=== PATIENT | male | born 1960 | race Caucasian/White ===

== ENCOUNTER 2020-03-24 05:52 | Inpatient (IN) ==
--- NOTE | 2020-03-01 11:37 | PAT Medication Instructions ---
Medication Instructions Date of Service March 01, 2020 Home Medications Ibuprofen (Motrin) 600 mg PO BID levothyroxine 150 mcg PO QAM turmeric (bulk) [Curcumin] 2 ea MISCELLANEOUS QAM ASK your surgeon for instructions Ibuprofen (Motrin) 600 mg PO BID STOP taking 2 weeks before surgery (or as soon as possible if surgery is within 2 weeks) turmeric (bulk) [Curcumin] 2 ea MISCELLANEOUS QAM Take morning of surgery With a small sip of water, OTHERWISE NOTHING TO EAT OR DRINK AFTER MIDNIGHT: levothyroxine 150 mcg PO QAM Other Notes If you have any questions please call us at [phone] or [phone] or [phone] or [phone]
--- NOTE | 2020-03-01 11:42 | Anesthesiology Consultation ---
Date of Service March 01, 2020 Assessment & Plan (1) Encounter for pre-operative examination: Per assessment on 03/01: Travel screen- negative. No known COVID-19 positive con tacts or current COVID-19 related symptoms. Surgeon arranging preop COVID testing (scheduled 03/05; [facility]). Awaiting results. Chart Review Chart Review: Acceptable Risk for Surgery and Patient seen in Pre Admission Testing Teaching & Discussion Pre-Anesthesia Teaching/Discussion Notes: Instructed NPO after midnight before surgery,except medications with 15 cc of water. Medication instructions provided according to the PAT guidelines. History Surgery Operation Date: 03/12/20 12:25 Proposed Procedures p C4-C7 Anterior Cervical Discectomy Fusion, Spinal Cord Monitoring - Govind Win, Height/Weight Height: 6 ft Weight: 94 kg Allergies Allergy/AdvReac Type Severity Reaction Status Date / Time cephalexin Allergy rash Unverified 03/01/20 14:42 Sulfa (Sulfonamide Allergy rash Unverified 03/01/20 14:42 Antibiotics) Cipro AdvReac "YEAST Unverified 07/15/09 12:43 INFECTION ciprofloxacin AdvReac yeast Unverified 03/01/20 14:42 infection Medications Home Medications Medication Instructions Recorded Confirmed Last Taken Ibuprofen (Motrin) 600 mg PO BID #0 07/15/09 03/01/20 Unknown levothyroxine 150 mcg PO QAM 03/01/20 03/01/20 Unknown turmeric (bulk) [Curcumin] 2 ea MISCELLANEOUS QAM 03/01/20 03/01/20 Unknown Past Medical History Medical History History of colitis Hypothyroid Osteoarthritis Seasonal allergies Exercise / Class Metabolic Activity II 4-5 Yardwork/Stairs/Walk up hill Past Surgical History Surgical History History of carpal tunnel release with cyst removal History of ear surgery History of nasal surgery History of removal of cyst back, ear, wrist Past Anesthesia History No Hx of Anesthesia Complications (except PONV x1 episode) and No Family Hx of Anesthesia Complications History of PONV No Hx of Motion Sickness and History of PONV (x1 episode) Social History Smoking Status: Current every day smoker tobacco type: cigarettes Smoking cigarettes per day: 1/2 PPD x 4 years Do You Dip or Chew Tobacco: No Hx Alcohol Use: Yes Alcohol type: beer Alcohol Intake Frequency Comment: 1-2 times/year Hx Substance Use: No substance use type: does not use Review of Systems Patient denies chest pain, shortness of breath, dyspnea on exertion, fever, chills, cough, wheezing, palpitations. Physical Exam Vital Signs VITALS BP 134/75 P 87 TEMP 98.2 SP02 97%RA RESP 16 PHYSICAL Mildly decreased cervical extension 2/2 cervicalgia Full TMJ range of motion. TMD 3 finger breaths Mallampati Score 2 Dentition: upper partial Lungs: clear throughout to auscultation Cardiac: regular rate and rhythm, no murmurs noted Spine: normal Carotid arteries: negative bruit Extremities: no edema Trimmed talbert Testing Laboratory Results 03/01/20 12:05 03/01/20 12:05 PT 10.6 Seconds (9.0-12.0) 03/01/20 12:05 INR 1.0 (0.9-1.1) 03/01/20 12:05 APTT 28.2 Seconds (21.0-31.0) 03/01/20 12:05 Urine Color Yellow 03/01/20 12:05 Urine Appearance Clear (Clear) 03/01/20 12:05 Urine pH 5.5 (4.5-7.5) 03/01/20 12:05 Ur Specific Bim 1.025 (1.000-1.030) 03/01/20 12:05 Urine Protein Negative (Negative) 03/01/20 12:05 Urine Glucose (UA) Negative (Negative) 03/01/20 12:05 Urine Ketones Trace (Negative) H 03/01/20 12:05 Urine Nitrite Negative (Negative) 03/01/20 12:05 Ur Leukocyte Esterase Negative (Negative) 03/01/20 12:05 Blood Type O Positive 03/01/20 12:05 Antibody Screen NEGATIVE 03/01/20 12:05 Electrocardiogram Date: 03/01/20 Findings: + NSR @ (80) Chest X-Ray Date: 03/01/20 FINDINGS: The heart is the upper limits of normal in size. There is no failure. There is no lobar consolidation. There are bilateral rounded opacities at the lung bases likely representing nipple shadows. There is no failure. IMPRESSION: No active disease in the chest.
[2020-03-01 12:23] LABS: Appearance Urine Clear (Clear); Basophils # (auto) 0.02 K/uL (0-0.2); Basophils % (auto) 0.3 %; Bilirubin Urine Negative (Negative); Blood Urine Negative (Negative); Color Urine Yellow; Eosinophils # (auto) 0.39 K/uL (0-0.5); Eosinophils % (auto) 5.8 %; Glucose Urine UA Negative (Negative); Hematocrit (blood only) 45.9 % (42-52); Hemoglobin 15.9 g/dL (14.0-18.0); Immature Granulocytes # (auto) 0.01 K/uL (0.00-0.02); Immature Granulocytes % (auto) 0.1 %; Ketones Urine Trace (Negative); Leukocyte Esterase Urine Negative (Negative); Lymphocytes # (auto) 2.14 K/uL (1.2-3.4); Mean Corpuscular Hemoglobin 32.1 pg (25-34); Mean Corpuscular Hgb Conc 34.6 g/dL (32-36); Mean Corpuscular Volume 92.7 fL (80-100); Mean Platelet Volume 9.6 fL (7.4-10.4); Monocytes # (auto) 0.73 K/uL (0.11-0.59); Monocytes % (auto) 10.9 %; Neutrophils # (auto) 3.39 K/uL (1.4-6.5); Neutrophils % (auto) 50.9 %; Nitrite Urine Negative (Negative); Platelet Count 227 K/uL (130-400); Protein Urine Negative (Negative); RDW Coefficient of Variation 13.1 % (11.5-14.5); RDW Standard Deviation 44.3 fL (36.4-46.3); Red Blood Count 4.95 M/uL (4.7-6.1); Specific Gravity Urine 1.025 (1.000-1.030); Urobilinogen Urine Negative (Negative); White Blood Count 6.68 K/uL (4.8-10.8); pH Urine 5.5 (4.5-7.5)
--- NOTE | 2020-03-01 12:31 | XRay Report ---
XR chest Pre-admission PA/Lat CLINICAL HISTORY: Preoperative chest COMPARISON STUDY: No previous studies for comparison. FINDINGS: The heart is the upper limits of normal in size. There is no failure. There is no lobar con solidation. There are bilateral rounded opacities at the lung bases likely representing nipple shadow s. There is no failure.[ IMPRESSION: No active disease in the chest. ACT 112: Negative or not required by law. Electronically signed by: Ervin Payton M.D. 03/01/2020 12:29 PM
[2020-03-01 12:35] LABS: Partial Thromboplastin Time 28.2 Seconds (21.0-31.0); Prothrombin Time 10.6 Seconds (9.0-12.0)
[2020-03-01 14:37] LABS: BUN Creatinine Ratio 28.4 (10-20); Calcium 8.7 mg/dl (8.5-10.1); Creatinine Clr Calc Pharmacy 108.9 ml/min; Est GFR (African American) 109.7; Est GFR (Non-African American) 94.7; Potassium 3.8 mmol/L (3.5-5.1)
--- NOTE | 2020-03-01 16:28 | Electrocardiogram Report ---
Test Reason : Blood Pressure : / mmHG Vent. Rate : 080 BPM Atrial Rate : 080 BPM P-R Int : 198 ms QRS Dur : 090 ms QT Int : 366 ms P-R-T Axes : 086 056 073 degrees QTc Int : 422 ms Normal sinus rhythm Normal ECG No previous ECGs available Confirmed by Eddi Bartholomew ([id number]) on 03/01/2020 4:28:10 PM Referred By: Govind Win Confirmed By:Clinton Bartholomew
[~2020-03-24 05:52] MED LIST: *ANCEF*ALLERGY NOTED TO ORDERED MEDICATION SCH; ACETAMINOPHEN 500 MG TAB PO SCH; GABAPENTIN 600 MG DOSE PO SCH; LR 15ML/HR IV SCH
--- OUTSIDE RECORDS SUMMARY | 2020-03-24 05:55 | External Medical Summary | Continuity of Care Document ---
:1960 Author Name Daisy Walker Address Unavailable Unavailable , Care Team Providers Name Role Phone Gabo Walker Unavailable [email or web address] Active medical history not documented Allergies and Adverse Reactions Allergy history not documented Medications Medications not documented Procedures Procedures not documented Immunizations Immunizations not documented Plan of Treatment Planned Observations Planned Goals not documented Results No Known Results Results not documented
[2020-03-24] MEDS ORDERED: CLINDAMYCIN 600 MG/54 ML BAG IV SCH (06:00)
[2020-03-24] MEDS ORDERED: CeleBREX 200 MG CAP PO SCH (06:00)
[2020-03-24] MEDS ORDERED: ACETAMINOPHEN 500 MG TAB PO SCH (06:00)
[2020-03-24] MEDS ORDERED: GABAPENTIN 600 MG DOSE PO SCH (06:00)
[2020-03-24] MEDS ORDERED: LR 15ML/HR IV SCH (06:00)
[2020-03-24] MEDS ORDERED: LIDOCAINE HCL 2% 2 ML VIAL/AMP(20MG/ML) INFIL ONE (06:51)
[2020-03-24] MEDS ORDERED: GLYCOPYRROLATE 0.2 MG/ML VIAL ONE (06:51)
[2020-03-24] MEDS ORDERED: PROPOFOL IV EMULSION 10 MG/ML 20 ML VIAL IV ONE (06:51)
[2020-03-24] MEDS ORDERED: fentaNYL citrate 100 MCG/2 ML VIAL ONE ×2 (06:51→08:22)
[2020-03-24] MEDS ORDERED: MIDAZOLAM HCL 1 MG/ML 2ML VIAL ONE (06:51)
[2020-03-24] MEDS ORDERED: NEOSTIGMINE METHYLSULFATE 1 MG/ML 10ML VIAL ONE (06:51)
[2020-03-24] MEDS ORDERED: ROCURONIUM BROMIDE 10 MG/ML 5 ML VIAL IV ONE ×3 (06:51→08:25)
[2020-03-24] MEDS ORDERED: BACITRACIN INJ 50,000 UNIT VIAL ONE (07:15)
[2020-03-24] MEDS ORDERED: METOCLOPRAMIDE HCL INJ 5 MG/ML 2 ML VIAL IV PRN ×2 (07:31→11:54)
[2020-03-24] MEDS ORDERED: PROMETHAZINE HCL 12.5 MG in SODIUM CHLORIDE 0.9% 50 ML IV PRN ×2 (07:31→11:54)
[2020-03-24] MEDS ORDERED: ONDANSETRON INJ 2 MG/ML 2 ML VIAL IV PRN ×2 (07:31→11:54)
[2020-03-24] MEDS ORDERED: ATROPINE SULFATE 0.1 MG/ML 10ML SYR IV PRN (07:31)
[2020-03-24] MEDS ORDERED: ePHEDrine sulfate 50 MG/ML AMP IV PRN (07:31)
[2020-03-24] MEDS ORDERED: HYDROmorphone INJ 2 MG/ML SYR/VIAL IV PRN (07:31)
--- NOTE | 2020-03-24 07:36 | History & Physical Bridge Note ---
Date of Service March 24, 2020 History & Physical Bridge Note I have examined the patient, reviewed the History & Physical and in the interval since the performance of the History & Physical I have noted the following changes of clinical significance: no changes noted
--- NOTE | 2020-03-24 07:37 | History & Physical Report ---
Date of Service March 24, 2020 Assessment & Plan (1) Cervical stenosis of spinal canal: Admission and Anticipated Discharge Date Admission Date: C4-C7 anterior cervical discectomy and fusion History of Present Illness Chief Complaint: Neck and arm pain Primary Care Provider: Saqib Burton MD This is a 51-year-old male who presents with car persistent neck and arm symptoms after failing course of nonoperative care is here for surgical invention. Allergies Allergy/AdvReac Type Severity Reaction Status Date / Time cephalexin Allergy rash Verified 03/24/20 06:09 Sulfa (Sulfonamide Allergy rash Verified 03/24/20 06:09 Antibiotics) Cipro AdvReac "YEAST Unverified 07/15/09 12:43 INFECTION ciprofloxacin AdvReac yeast Verified 03/24/20 06:09 infection Home Medications Medication Instructions Recorded Confirmed Type Ibuprofen (Motrin) 600 mg PO BID #0 07/15/09 03/24/20 History levothyroxine 150 mcg PO QAM 03/01/20 03/24/20 History turmeric (bulk) [Curcumin] 2 ea MISCELLANEOUS QAM 03/01/20 03/24/20 History Past Med/Surg History Medical History History of colitis Hypothyroid Osteoarthritis Seasonal allergies Surgical History History of carpal tunnel release with cyst removal History of ear surgery History of nasal surgery History of removal of cyst back, ear, wrist Social History Smoking Status: Current every day smoker Cigarettes Per Day: 1/2 PPD x 4 years; Second Hand Exposure: Yes (as a child); Do You Dip or Chew Tobacco: No; Hx Alcohol Use: Yes Alcohol type: beer Hx Substance Use: No Preferred Language: Maltese Communication Ability: Effective Beliefs That Will Affect Care: None Current Living Situation: Spouse Feels Safe at Home: Yes Safety Concerns: Feels Safe At This Time Assistive Devices: Glasses Assistive Devices Comment: partial Physical Exam Physical Exam: Patient is alert and oriented Heart regular in rhythm Lungs clear to auscultation Results & Data ([facility]) Vital Signs (Past 12 Hours) Vital Signs Temp Pulse Resp BP Pulse Ox 03/24/20 06:13 36.4 C L 78 20 137/92 96
[2020-03-24] MEDS ORDERED: CLINDAMYCIN 600 MG/54 ML D5W IV ONE (07:48)
[2020-03-24] MEDS ORDERED: HYDROmorphone INJ 2 MG/ML SYR/VIAL ONE (08:23)
[2020-03-24] MEDS ORDERED: ONDANSETRON INJ 2 MG/ML 2 ML VIAL ONE (08:25)
[2020-03-24] MEDS ORDERED: DEXAMETHASONE SOD INJ 4 MG/ML VIAL ONE (08:25)
[2020-03-24] MEDS ORDERED: FLOSEAL HEMOSTATIC MATRIX 10ML TOP ONE (08:25)
--- NOTE | 2020-03-24 09:57 | Operative Report ---
Post Operative Report Pre & Post Diagnosis Operation Date: 03/24/20 07:45 Pre-Op Diagnosis: Spinal Stenosis, Cervical Region Post-Op Diagnosis: Spinal Stenosis, Cervical Region I identified the patient and participated in the time-out.: Yes Procedure Operation Date: 03/24/20 07:45 Actual Procedures #1 anterior cervical discectomy with bilateral foraminotomies C4-5, C5-6 and C6- 7. #2 anterior cervical arthrodesis C4-5, C5-6 and C6-7. #3 placement of Spira cage 7 mm in height at C4-5, 7 mm height at C5-6, 8 mm height at see 670 filled with DBM. #4 application of 5 complete screws from C4-C7. Surgeon Govind Win, DO Fur Machine Operator Cyrus Enriquez Estimated Blood Loss 25 Findings Consistent with Post-Op Diagnosis Specimens None Indications This is a 51-year-old male who presents with above-mentioned diagnosis after failing course of nonoperative care is here for the above-mentioned procedure. Description of Procedure Patient met with identified informed consent obtained. Patient was then taken to the operative suite underwent an patient placed in supine position Jose D table with head Lambert cathead worker. All bony prominences well-padded eyes inspected to ensure no external pressure placed upon the. This point the anterior cervical spine was prepped and draped in normal sterile fashion. Sharp dissection with the assistance of bipolar electrocautery performed down to expose the anterior cervical spine from C4-C7. Self-retaining retractor was placed. Then performed a complete discectomy of C4-5 out to the uncovertebral joints bilaterally. Greene distraction pins were utilized. Removed all posterior annular fibers longitudinal ligament bilateral foraminotomies performed. Endplates were to subcortical any bone and a 7 mm spiral cage filled with DBM tapped in position. And then proceeded to C5-C6. Again complete discectomy performed out to the uncovertebral joints bilaterally. Greene distracting pins again utilized. Removed all posterior annular fibers longitudinal ligament and bilateral foraminotomies performed. Endplates burred to subcortically bone and again a 7 mm Spira cage filled with DBM tapped in position. Then proceeded to C6-C7. Again complete discectomy performed out to the uncovertebral joints bilaterally. Greene distracting pins again utilized. Removed all posterior annular fibers longitudinal ligament bilateral foraminotomies performed. Endplates were to subcortical bleeding bone and an 8 mm Spira cage filled with DBM tapped in position. Distracting apparatus was removed all anterior osteophytes burred to a smooth cortical surface and a james plate and screws applied with the assistance of fluoroscopy. Incision was then copiously irrigated explored to ensure no damage to surrounding structures remaining bleeding. 10 round IAM drain inserted. The incision was then closed with 1 Vicryl the fascia 2-0 Vicryl subcutaneously and 4 Monocryl for final skin closure. Steri-Strip sterile dressings placed. Patient waken taken PACU stable condition. Please note spinal cord monitoring was utilized th at the procedure no changes noted. Lastly Cyrus Enriquez was present at the entire surgery involved in patient positioning complex portions of the surgery and final skin closure. I attest to the content of the Intraoperative Record and any orders documented therein. Any exceptions are noted below.
--- NOTE | 2020-03-24 10:21 | Fluoroscopy Report ---
FL cervical 2-3V CLINICAL HISTORY: ACDF C4-7 COMPARISON STUDY: None. FLUOROSCOPY TIME: 17 seconds. FINDINGS: 2 fluoroscopic spot images of the cervical spine demonstrate anterior cervical discectomy a nd fusion from C4 through C7. The hardware appears intact. IMPRESSION: Fluoroscopy provided for C4-C7 ACDF. ACT 112: Negative or not required by law. Electronically signed by: Fabrice Wolf M.D. 03/24/2020 10:20 AM
[2020-03-24] MEDS: fentaNYL citrate 100 MCG/2 ML VIAL IV PRN ×2 (10:41→10:46)
[2020-03-24] MEDS ORDERED: hydrOXYzine HCl 25 MG TAB PO PRN (11:54)
[2020-03-24] MEDS ORDERED: ACETAMINOPHEN 1,000 MG/100 ML VIAL IV PRN (11:54)
[2020-03-24] MEDS ORDERED: NALOXONE HCL 0.4 MG/1 ML VIAL/CARP IV PRN (11:54)
[2020-03-24] MEDS ORDERED: HYDROmorphone INJ 0.5 MG/0.5 ML SYR IV PRN (11:54)
[2020-03-24] MEDS ORDERED: RACEPINEPHRINE 2.25% NEBU SOLN 0.5 ML VIAL INH PRN (11:54)
[2020-03-24] MEDS ORDERED: diphenhydrAMINE Capsule 25 MG CAP PO PRN (11:54)
[2020-03-24] MEDS ORDERED: FAMOTIDINE 20 MG TAB PO PRN (11:54)
[2020-03-24] MEDS ORDERED: DEXAMETHASONE SOD PHOSPHATE 8 MG in SYRINGE 0 ML IV PRN (11:54)
[2020-03-24] MEDS ORDERED: LORazepam 0.5 MG/1 ML VIAL IV PRN (11:54)
[2020-03-24] MEDS ORDERED: traMADol HCL 50 MG TABLET PO PRN (11:54)
[2020-03-24] MEDS ORDERED: SOD PHOSPHATE/SOD BIPHOSPHATE ENEMA 132 ML BTL PR PRN (11:54)
[2020-03-24] MEDS ORDERED: ONDANSETRON 4 MG OD TAB PO PRN (11:54)
[2020-03-24] MEDS ORDERED: LORazepam 0.5 MG TAB PO PRN (11:54)
[2020-03-24] MEDS ORDERED: DO NOT ADMINISTER FLU VACCINE PRN (11:54)
[2020-03-24] MEDS ORDERED: MAGNESIUM HYDROXIDE SUSP 30 ML UDC PO PRN (11:54)
[2020-03-24] MEDS ORDERED: ACETAMINOPHEN 500 MG TAB PO PRN (11:54)
[2020-03-24] MEDS ORDERED: DO NOT ADMINISTER PNEUMOCOCCAL VACCINE PRN (11:54)
[2020-03-24] MEDS ORDERED: ALUMINUM/MAGNESIUM SUSP 30 ML UDC PO PRN (11:54)
[2020-03-24] MEDS: LACTATED RINGER'S 1,000 ML IV SCH ×2 (12:29→18:33)
[2020-03-24] MEDS: HYDROmorphone INJ 1 MG/ML SYRINGE IV PRN ×2 (12:32→15:31)
[2020-03-24] MEDS ORDERED: INFLUENZA VIRUS QUAD VACCINE 0.5 ML SYR IM ONE (15:00)
[2020-03-24] MEDS ORDERED: INFLUENZA ADMINISTRATION CHARGE ONE (15:00)
[2020-03-24] MEDS: CLINDAMYCIN 600 MG in DEXTROSE 5% 50 ML IV SCH (15:31)
[2020-03-24] MEDS: oxyCODONE HCL IR 5 MG TAB (IMMEDIATE RELEASE) PO PRN ×2 (18:34→22:38)
[2020-03-24] MEDS ORDERED: DOCUSATE SODIUM/SENNA 50/8.6MG TAB PO SCH (21:00)
[2020-03-24] MEDS: DEXAMETHASONE SOD PHOSPHATE 8 MG in SYRINGE 0 ML IV SCH (22:31)
[2020-03-25] MEDS: CLINDAMYCIN 600 MG in DEXTROSE 5% 50 ML IV SCH (00:32)
[2020-03-25] MEDS: LACTATED RINGER'S 1,000 ML IV SCH (00:32)
[2020-03-25] MEDS: oxyCODONE HCL IR 5 MG TAB (IMMEDIATE RELEASE) PO PRN ×3 (02:32→11:50)
[2020-03-25] MEDS: DEXAMETHASONE SOD PHOSPHATE 8 MG in SYRINGE 0 ML IV SCH ×2 (06:24→11:49)
[2020-03-25] MEDS ORDERED: LEVOTHYROXINE SODIUM 150 MCG TABLET PO SCH (06:30)
--- NOTE | 2020-03-25 09:33 | Discharge Summary ---
Date of Service March 25, 2020 Admission HPI Per Admitting Provider This is a 51-year-old male who presents with car persistent neck and arm symptoms after failing course of nonoperative care is here for surgical invention. Principal Diagnosis Cervical spinal stenosis with radiculopathy Discharge Data Allergies Allergy/AdvReac Type Severity Reaction Status Date / Time cephalexin Allergy rash Verified 03/24/20 06:09 Sulfa (Sulfonamide Allergy rash Verified 03/24/20 06:09 Antibiotics) Cipro AdvReac "YEAST Unverified 07/15/09 12:43 INFECTION ciprofloxacin AdvReac yeast Verified 03/24/20 06:09 infection Procedures Performed Operation Date: 03/24/20 07:45 Actual Procedures p C4-C7 Anterior Cervical Discectomy and Fusion, Spinal Cord Monitoring(Not Applicable) - Govind Win DO Ordered Studies 03/24/20 07:45 FL cervical 2-3V Routine FL fluoroscopy <1hr Routine Hospital Course (1) Cervical stenosis of spinal canal: Patient underwent anterior cervical discectomy and fusion tolerated so was taken to orthopedic floor postoperative. Postop day #1 of swallowing well no hoarseness excellent strength testing pain well controlled. Subsequently discharged home. Discharge orders instructions from the chart for further review. Total Time Total Time Spent Total Time Spent (In Minutes): 20 minutes Discharge Plan Discharge Items Patient Disposition: Home - Self-Care Reason For Visit: Spinal Stenosis, Cervical Region Discharge Diagnosis: Cervical stenosis with radiculopathy Activity: As commented below Non-emergency contact: Primary Care Provider Call non-emergency contact if: you have any medication questions Follow-up/Referrals: Saqib Burton MD [Primary Care Provider] - Diet: Regular Addtl Attending Provider Instructions: ACTIVITY RECOMMENDATIONS: SELF CARE INSTRUCTIONS AFTER CERVICAL FUSIONS 1. No smoking. Smoking drastically decreases the chance of a solid fusion. 2. No bending, lifting more than 5 pounds, or twisting (roll like a log when turning in bed). 3. You may shower 3 days after surgery. Thoroughly dry wound. Do not soak in the tub. 4. Cervical collar: Must be worn at all times including sleeping. You may remove the brace only to bath, eat and if you are sitting in a recliner. 5. Please walk as much as you can for exercise. Gradually increase the distance that you walk as your endurance increases. SPECIAL CARE INSTRUCTIONS: VERY IMPORTANT TO READ AND REVIEW A. Do not take any anti-inflammatory medications (i.e. Indocin, Advil, Aspirin, Naprosyn, Aleve, Motrin, etc.) as these may inhibit the chance of a solid fusion. Tylenol is okay to take. B. Your surgical incision has been closed with a cosmetic suture under the skin that will dissolve in about 6 weeks. In 14 days, you can use a pair of clean scissors and cut the suture that is left outside of the skin at the ends of your incision. C. Complications are uncommon, but please contact us if you have any signs or symptoms of: 1. wound infection (fever higher than 102.5 degrees F, redness, separation of wound, drainage, or increasing pain from the incision) 2. blood clots in legs (pain, swelling, redness and warmth in legs) 3. urinary tract infection (fever higher than 102.5 degrees, burning upon urination or increased frequency of urination) 4. nerve problems (inability to walk on your toes or heels, numbness, loss of bowel or bladder control) 5. any other symptoms that concern you. D. Please call the office at if you have any concerns or questio ns about your operation or recovery. MANAGING PAIN AFTER SPINAL SURGERY 1. Narcotic medication is intended for short-term use and will be provided for surgical pain. Surgical pain usually lasts for a period of 4-6 weeks. Narcotic medication includes Percocet, Vicodin, Darvocet, Tylenol #3 or Lortab. 2. Longer-term pain is more appropriately treated with non-narcotic medication such as Tylenol ES. 3. Muscle spasm is not appropriately treated with narcotics. Muscle relaxers such as Soma, Flexeril or Skelaxin can be used along with Tylenol ES. 4. Remember that we all live with some "aches and pains". This is not unusual or uncommon after an injury or as we get older. 5. We will provide appropriate medication within the normal guidelines of their prescribed use. We will also be very cautious and aware of potential abuse and extended duration of patients' medication needs. 6. Please allow 2-3 days to process refills. Prescriptions will not be mailed but must be picked up at the office. FOLLOW UP VISIT: Keep your scheduled follow-up appointment. Any questions, please call the office at . Pending Studies at Discharge: No Stand-Alone Forms: [facility], Smoking Cessation Medications and DC Order Prescriptions: New tramadol 50 mg tablet 50 mg PO Q6H PRN (Reason: pain, moderate) Qty: 20 RF: 0 oxycodone 5 mg tablet 5 mg PO Q6H PRN (Reason: pain, severe) Qty: 20 RF: 0 Continued levothyroxine 150 mcg Tablet 150 mcg PO QAM RF: 0 Curcumin 95 % Powder 2 ea MISCELLANEOUS QAM RF: 0 Discontinued Ibuprofen (Motrin) 600 MG tablet 600 mg PO BID Qty: 0 RF: 0 Discharge Orders: Discharge Order (Routine); Ordered 03/25/20 Ordered By: Govind Win Admission Data Admit Date/Time: 03/24/20 10:18 Attending Provider: Govind Win Admit Provider: Govind Win Primary Care Provider: Saqib Burton Other Interventions: Discharge Summary Assessment (RN) Last Done: 03/25/20 08:12
[2020-03-25] MEDS ORDERED: POLYETHYLENE (MIRALAX) 17 GM PACK PO SCH (12:00)
[2020-03-26] MEDS ORDERED: bisacodyL 10 MG SUPP PR PRN (09:58)
== END 2020-03-25 12:21 | disposition home or self-care (01) | DRG 473 ==
LOC: ASU 05:52 → 3N 05:52 → OBSVTOIN 10:18

== ENCOUNTER 2021-07-12 06:31 | Observation (INO) ==
--- NOTE | 2021-07-08 11:24 | Anesthesiology Consultation ---
Date of Service July 08, 2021 Assessment & Plan (1) Encounter for pre-operative examination: - COVID screening: Per image processing engineer on 07/07/2110/21/2021: Travel screen negative, no known COVID-19 positive contacts or current COVID-19 related symptoms in past 2 weeks. Patient vaccinated. Surgeon arranging preop COVID testing, scheduled 07/08/2021. Awaiting results. Chart Review Chart Review: Acceptable Risk for Surgery and Patient NOT seen in Pre Admission Testing History Surgery Operation Date: 07/12/21 09:20 Proposed Procedures p Robotic Laparoscopic Assisted Radical Retropubic Prostatectomy, Possible Open, Possible Pelvic Lymph Node Dissection, Possible Suprapubic Tube Placement - Alex Perez MD Height/Weight Height: 6 ft Weight: 90.718 kg Allergies Allergy/AdvReac Type Severity Reaction Status Date / Time cephalexin Allergy rash Verified 07/07/21 12:22 Sulfa (Sulfonamide Allergy rash Verified 07/07/21 12:22 Antibiotics) Cipro AdvReac "YEAST Unverified 07/15/09 12:43 INFECTION ciprofloxacin AdvReac yeast Verified 07/07/21 12:22 infection Medications Home Medications Medication Instructions Recorded Confirmed Last Taken levothyroxine 150 mcg tablet 150 mcg PO QAM 03/01/20 07/07/21 03/23/20 06:00 Turmeric Otc 2 tab PO BID 07/07/21 07/07/21 Unknown Past Medical History Medical History Cancer PROSTATE GERD (gastroesophageal reflux disease) UNDER CONTROL History of colitis Hypothyroid Osteoarthritis Seasonal allergies Past Family History Family History Other No known health problems Past Surgical History Surgical History (Updated 07/08/21 @ 11:20 by Chelsie Marlow PA-C) Fusion of spine ACDF C4-C7 03/24/2020: Grade 1 view, Glidescope#3, ETT#8.0. Elective glidescope. History of carpal tunnel release with cyst removal History of colonoscopy 2020 History of ear surgery MASTOID History of herniorrhaphy X 2 History of nasal surgery History of removal of cyst back, ear, wrist Nausea and vomiting after administration of anesthetic agent Social History Smoking Status: Former smoker tobacco type: cigarettes Smoking cigarettes per day: 10 CIGS A DAY Do You Dip or Chew Tobacco: No Hx Alcohol Use: Yes Alcohol type: beer alcohol intake frequency: holidays/special occasions only Hx Substance Use: No substance use type: does not use Lab Results Anesthesia Preop Results Results Anesthesia Widget: WBC 6.17 K/uL (4.8-10.8) 07/01/21 Hgb 16.9 g/dL (14.0-18.0) 07/01/21 Hct 48.2 % (42-52) 07/01/21 Plt 258 K/uL (130-400) 07/01/21 Na 137 mmol/L (136-145) 07/01/21 K 4.2 mmol/L (3.5-5.1) 07/01/21 Cl 104 mmol/L (98-107) 07/01/21 CO2 26 mmol/L (21-32) 07/01/21 BUN 22 mg/dl (6-23) 07/01/21 Creat 0.80 mg/dl (0.6-1.4) 07/01/21 Glucose Level 96 mg/dl (70-99(Fasting)) 07/01/21 PT 10.5 Seconds (9.0-12.0) 07/01/21 INR 1.0 (0.9-1.1) 07/01/21 Testing Electrocardiogram Date: 07/01/21 NSR, rate 66 bpm Low voltage QRS Chest X-Ray Date: 07/01/21 *1 view* No acute cardiopulmonary disease
[~2021-07-12 06:31] MED LIST changes: -*ANCEF*ALLERGY NOTED TO ORDERED MEDICATION SCH; -ACETAMINOPHEN 500 MG TAB PO SCH; +CLINDAMYCIN 900 MG in DEXTROSE 5% 50 ML IV SCH; -GABAPENTIN 600 MG DOSE PO SCH; +HEPARIN SOD 5,000 UNIT/0.5 ML VIAL SQ SCH; +LACTATED RINGER'S 1,000 ML IV SCH
[2021-07-12] MEDS ORDERED: PROMETHAZINE HCL 6.25 MG in SODIUM CHLORIDE 0.9% 50 ML IV PRN (07:10)
[2021-07-12] MEDS ORDERED: ATROPINE SULFATE 0.1 MG/ML 10ML SYR IV PRN (07:10)
[2021-07-12] MEDS ORDERED: ePHEDrine sulfate 50 MG/ML AMP IV PRN (07:10)
[2021-07-12] MEDS ORDERED: fentaNYL citrate 100 MCG/2 ML VIAL IV PRN (07:10)
[2021-07-12] MEDS ORDERED: HYDROmorphone INJ 1 MG/ML SYRINGE IV PRN (07:10)
[2021-07-12] MEDS ORDERED: ONDANSETRON INJ 2 MG/ML 2 ML VIAL IV PRN ×2 (07:10→12:53)
--- NOTE | 2021-07-12 07:20 | History & Physical Bridge Note ---
Date of Service July 12, 2021 History & Physical Bridge Note I have examined the patient, reviewed the History & Physical and in the interval since the performance of the History & Physical I have noted the following changes of clinical significance: no changes noted
[2021-07-12] MEDS ORDERED: MIDAZOLAM HCL 1 MG/ML 2ML VIAL ONE (08:01)
[2021-07-12] MEDS ORDERED: fentaNYL citrate 100 MCG/2 ML VIAL ONE ×2 (08:01→10:09)
[2021-07-12] MEDS ORDERED: BUPIVACAINE 0.5 % 5 MG/1 ML MPF 30ML VIAL ONE (08:06)
[2021-07-12] MEDS ORDERED: BELLADONNA/OPIUM SUPP 60 MG SUPP PR ONE ×2 (08:34→10:34)
[2021-07-12] MEDS ORDERED: HYDROmorphone INJ 2 MG/ML SYR/VIAL ONE (08:42)
[2021-07-12] MEDS ORDERED: LABETALOL HCL IV 5 MG/ML 20ML IV ONE (08:55)
[2021-07-12] MEDS ORDERED: PHENYLEPHRINE 100MCG/ML 5ML SYR ONE (08:56)
[2021-07-12] MEDS ORDERED: LARYING-O-JET KIT (LTA) ONE (08:56)
[2021-07-12] MEDS ORDERED: ROCURONIUM BROMIDE 10 MG/ML 5 ML VIAL IV ONE ×3 (08:56→10:40)
[2021-07-12] MEDS ORDERED: PROPOFOL IV EMULSION 10 MG/ML 20 ML VIAL IV ONE (08:56)
[2021-07-12] MEDS ORDERED: ePHEDrine sulfate 50 MG/ML SYR ONE (08:56)
[2021-07-12] MEDS ORDERED: NEOSTIGMINE METHYLSULFATE 1 MG/ML 10ML VIAL ONE (08:56)
[2021-07-12] MEDS ORDERED: DEXAMETHASONE SOD INJ 4 MG/ML VIAL ONE (08:56)
[2021-07-12] MEDS ORDERED: LIDOCAINE 2% 2 ML VIAL/AMP(20MG/ML) INFIL ONE (08:56)
[2021-07-12] MEDS ORDERED: GLYCOPYRROLATE 0.2 MG/ML VIAL ONE (08:56)
[2021-07-12] MEDS ORDERED: ONDANSETRON INJ 2 MG/ML 2 ML VIAL ONE (08:56)
[2021-07-12] MEDS ORDERED: FLOSEAL HEMOSTATIC MATRIX 10ML TOP ONE (10:34)
[2021-07-12] MEDS ORDERED: ACETAMINOPHEN 1000 MG/100 ML IV IV ONE (10:34)
[2021-07-12] MEDS ORDERED: SURGICEL ABSORB HEMOSTAT 2IN X 14IN TOP ONE (10:34)
[2021-07-12] MEDS ORDERED: KETOROLAC 30 MG/ML VIAL ONE (10:40)
--- NOTE | 2021-07-12 11:48 | Operative Report ---
PG Post Operative Report Pre & Post Diagnosis Operation Date: 07/12/21 08:10 Pre-Op Diagnosis: Prostate Cancer Post-Op Diagnosis: Prostate Cancer I identified the patient and participated in the time-out.: Yes Procedure Operation Date: 07/12/21 08:10 Actual Procedures p Robotic Laparoscopic Assisted Prostatectomy, Bilateral Pelvic Lymph Node Dissection(Not Applicable) - Alex Perez MD Surgeon Eddi Perez MD Siphoner Bebe Pavon Estimated Blood Loss 100 Findings Consistent with Post-Op Diagnosis Specimens 1. Periprostatic fat 2. Left pelvic lymph nodes 3. Right pelvic lymph nodes 4. Prostate and seminal vesicles Description of Procedure The patient was identified in the preoperative holding area, appropriate informed consents were reviewed and completed, and he was transported to the operating suite. Subcutaneous heparin was administered in the pre-operative holding area. Upon arrival in the operating suite, he received appropriate antibiotics and general anesthesia. He was positioned in dorsal lithotomy, a B&O suppository was inserted after digital rectal exam, and he was prepped and draped in standard fashion. A Stout catheter was inserted in the sterile field. A Veress needle was passed per umbilicus with uniform insufflation of the abdomen to 15mmHg. He was placed in steep Trendelenburg position. A periumbilical incision was then made to accommodate a 12mm Visiport with 10mm 0degree laparoscope. Inspection of the abdomen was carried out, and there was no evidence of traumatic entry or injury secondary to the Veress needle. After confirming a clear anterior abdominal wall, ports were subsequently placed in standard robotic prostatectomy fashion without incident. To begin the robotic portion of the case, the left lateral aspect of the sigmoid was mobilized off of the left pelvic side wall to allow the pouch of Gopi to be appropriately visualized. Of note, he has had prior bilateral inguinal hernia repairs and he had some adhesions around the left mesh. I took a few minutes to dissect the bowel away from this mesh and free the left lateral wall. The right side did not require any additional dissection as there were no significant adhesions in that area. I then made an incision in the pouch of Gopi, overlying the seminal vesicles. Both SVs as well as the ampullae of the vasa were entirely dissected, with the vasa transected 3cm from the prostate. The medial umbilical ligaments were then controlled with bipolar electrocautery just inferior to the umbilicus. Following cauterization, they were divided utilizing monopolar cautery. A peritoneal incision was carried from this location to the medial aspect of the internal inguinal rings bilaterally with care to avoid opening through the ring. This incision was concluded when the vas deferens was reached. Dissection of the bladder and prostate off of the posterior aspect of the pubic arch was completed allowing full visualization of the prostate. The fat overlying the prostate was removed en bloc and passed off the table as a specimen labeled "periprostatic fat". The endopelvic fascia was cleared during this portion of the procedure, and subsequently opened - first on the right and then the left. The incision through the endopelvic fascia began near the prostate-bladder junction and was carried to the apex with extreme care to preserve all lateral levator musculature as well as the periurethral musculature and sphincter complex. He had an accessory obturator artery on the left which was preserved. I additionally preserved the puboprostatic ligaments. I then controlled the DVC with a 3-0 V-lock suture in overlapping/figure of 8 fashion. The lymph node dissection was then conducted. External iliac vessels were identified on the pelvic side wall. The packet of fat and lymphatic tissue that resides just under the iliac vein was elevated and off of the vein with a split and roll technique. The packet was dissected laterally to the circumflex vein and distally to the obturator nerve which was preserved. The proximal aspect of the packet was carried towards the bifurcation of the iliac vessels. A combination of monopolar and bipolar cautery were used to assist with control. After completing the dissection on both sides, the packets were collected and passed off of the table as specimens labeled "pelvic lymph nodes". My attention then returned to the prostate, with identification of the bladder neck aided by gentle traction on the Stout catheter and lateral to medial pressure at the presumed level of the bladder neck with the robotic instruments. An anterior cystotomy was made, the Stout balloon deflated and the catheter guided through the incision to allow anterior retraction. I attempted to preserve maximal bladder neck musculature as I circumferentially dissected around the bladder neck. After incision through the posterior aspect of the mucosa, the dissection was carried through detrusor muscle until the bilateral ampullae of the vasa were identified. The previously dissected vasa and SVs were brought through the incision and used to elevated the prostate anteriorly. A posterior plane behind the prostate was then developed - splitting Denonvilliers's fascia. This dissection was carried as far as possible towards the apex as well as far as possible laterally. An incision in the lateral prostatic fascia was then made bilaterally to facilitate control of the vascular pedicles and preservation of the nerve bundles. Vasculature running along the posterior/lateral aspect of the prostate was preserved as well as the tissue containing the nerves. The pedicles were then controlled with a series of Weck clips. The apical attachments of the prostate were remaining at that stage. The DVC was divided after control with bipolar cautery over the prostate. Continuous inspection from anterior and lateral views allowed me to closely follow the apical contour of the prostate and maximally preserve urethral length and tissue. The prostate was entirely freed at that point, and collected in an EndoCatch bag before being moved out of the field of vision. Hemostasis was confirmed and anastomosis of the bladder and urethra was completed utilizing a double armed V- Lock stitch. A new Stout catheter was inserted and the anastomosis tested with irrigation. There was no evidence of leak. A mary style stitch was placed bilaterally to functionally marsupialize the area of the lymph node dissection. The robot was undocked, the specimen extracted through expansion of the dianne- umbilical camera port. The fascia was closed with a series of 0-PDS figure of 8 stitches. The right optometrist assistant port was closed in two layers - with a figure of 8 0-Vicryl to reapproximate the fascia followed by 4-0 Monocryl to close the skin. Monocryl was used to close all other skin incisions. All wounds were dressed with Dermabond. The case was concluded and the patient taken to the PACU in stable condition. Bebe Pavon assisted from incision to closure and all other aspects of the case. I attest to the content of the Intraoperative Record and any orders documented therein. Any exceptions are noted below.
[2021-07-12 12:09] LABS: Basophils # (auto) 0.02 K/uL (0-0.2); Basophils % (auto) 0.2 %; Eosinophils # (auto) 0.06 K/uL (0-0.5); Eosinophils % (auto) 0.5 %; Hematocrit (blood only) 47.5 % (42-52); Hemoglobin 16.4 g/dL (14.0-18.0); Immature Granulocytes # (auto) 0.04 K/uL (0.00-0.02); Immature Granulocytes % (auto) 0.4 %; Lymphocytes # (auto) 0.88 K/uL (1.2-3.4); Lymphocytes % (auto) 7.9 %; Mean Corpuscular Volume 92.6 fL (80-100); Mean Platelet Volume 9.8 fL (7.4-10.4); Monocytes # (auto) 0.14 K/uL (0.11-0.59); Monocytes % (auto) 1.3 %; Neutrophils # (auto) 10.04 K/uL (1.4-6.5); Neutrophils % (auto) 89.7 %; Platelet Count 246 K/uL (130-400); RDW Coefficient of Variation 14.1 % (11.5-14.5); RDW Standard Deviation 48.3 fL (36.4-46.3); Red Blood Count 5.13 M/uL (4.7-6.1); White Blood Count 11.18 K/uL (4.8-10.8)
[2021-07-12 12:11] LABS: Mean Corpuscular Hgb Conc 34.5 g/dL (32-36)
[2021-07-12 12:33] LABS: BUN Creatinine Ratio 25.8 (10-20); Calcium 8.4 mg/dl (8.5-10.1); Est GFR (African American) 98.6 ml/min; Est GFR (Non-African American) 85.1 ml/min; Potassium 5.4 mmol/L (3.5-5.1)
[2021-07-12] MEDS ORDERED: MoRPHine SULFATE 4 MG/ML 1 ML CARP\\VIAL IV PRN (12:53)
[2021-07-12] MEDS ORDERED: oxyCODONE HCL IR 5 MG TAB (IMMEDIATE RELEASE) PO PRN (12:53)
[2021-07-12] MEDS ORDERED: ACETAMINOPHEN 325 MG TAB PO PRN (12:53)
[2021-07-12] MEDS ORDERED: MoRPHine SULFATE 2 MG/ML CARP IV PRN (12:53)
--- NOTE | 2021-07-12 14:00 | Anesthesiology Progress Note ---
Date of Service July 12, 2021 Anesthesia Post Procedure Vital Signs Vital Signs: Temp Pulse Pulse Resp BP BP Pulse Ox 07/12/21 13:26 36.4 C L 77 16 137/74 93 07/12/21 12:59 36.7 C 94 H 16 131/75 94 07/12/21 12:35 36.8 C 72 16 117/72 97 07/12/21 12:25 36.8 C 83 16 142/83 H 94 07/12/21 12:15 69 13 135/83 96 07/12/21 12:05 87 20 142/79 H 97 07/12/21 11:55 85 20 137/82 98 07/12/21 11:45 66 23 112/86 96 07/12/21 11:35 37.1 C 72 14 119/76 95 07/12/21 06:45 36.6 C 67 18 145/79 H 97 Transfer of Care Handoff Completed per policy Notes Mental Status: alert / awake / arousable and participated in evaluation Patient Amnestic to Procedure: Yes Nausea / Vomiting: adequately controlled Pain: adequately controlled Airway Patency, RR, SpO2: stable & adequate BP & HR: stable & adequate Hydration State: stable & adequate Anesthetic Complications: no major complications apparent and Pt Satisfied with anesthetic care
[2021-07-12] MEDS: LACTATED RINGER'S 1,000 ML IV SCH (16:14)
[2021-07-12] MEDS: CLINDAMYCIN 600 MG in DEXTROSE 5% 50 ML IV SCH (17:14)
[2021-07-12] MEDS: oxyCODONE HCL IR 5 MG TAB (IMMEDIATE RELEASE) PO PRN (20:48)
[2021-07-12] MEDS: HEPARIN SOD 5,000 UNIT/0.5 ML VIAL SQ SCH (20:49)
[2021-07-13] MEDS: CLINDAMYCIN 600 MG in DEXTROSE 5% 50 ML IV SCH ×2 (00:13→07:52)
[2021-07-13] MEDS: LACTATED RINGER'S 1,000 ML IV SCH (02:34)
[2021-07-13] MEDS: oxyCODONE HCL IR 5 MG TAB (IMMEDIATE RELEASE) PO PRN ×2 (02:34→07:37)
[2021-07-13 08:00] LABS: Basophils # (auto) 0.01 K/uL (0-0.2); Basophils % (auto) 0.1 %; Eosinophils # (auto) 0.13 K/uL (0-0.5); Eosinophils % (auto) 1.3 %; Hematocrit (blood only) 42.4 % (42-52); Hemoglobin 14.7 g/dL (14.0-18.0); Immature Granulocytes # (auto) 0.01 K/uL (0.00-0.02); Immature Granulocytes % (auto) 0.1 %; Lymphocytes # (auto) 3.04 K/uL (1.2-3.4); Lymphocytes % (auto) 29.4 %; Mean Corpuscular Hemoglobin 31.7 pg (25-34); Mean Corpuscular Hgb Conc 34.7 g/dL (32-36); Mean Corpuscular Volume 91.6 fL (80-100); Mean Platelet Volume 9.9 fL (7.4-10.4); Monocytes # (auto) 1.05 K/uL (0.11-0.59); Monocytes % (auto) 10.2 %; Neutrophils # (auto) 6.09 K/uL (1.4-6.5); Neutrophils % (auto) 58.9 %; Platelet Count 238 K/uL (130-400); RDW Coefficient of Variation 14.2 % (11.5-14.5); RDW Standard Deviation 47.7 fL (36.4-46.3); Red Blood Count 4.63 M/uL (4.7-6.1); White Blood Count 10.33 K/uL (4.8-10.8)
[2021-07-13 08:04] LABS: BUN Creatinine Ratio 15.2 (10-20); Calcium 8.6 mg/dl (8.5-10.1); Creatinine Clr Calc Pharmacy 110.5 ml/min; Est GFR (African American) 113.9 ml/min; Est GFR (Non-African American) 98.3 ml/min; Potassium 3.7 mmol/L (3.5-5.1)
--- NOTE | 2021-07-13 08:21 | Urology Progress Note ---
Date of Service July 13, 2021 Assessment & Plan (1) Prostate cancer: Plan: doing very well advance diet plan for d/c home Admission and Anticipated Discharge Date Admission Date: July 12, 2021 Subjective no major issues overnight ambulatory tolerating clears no pain anxious to go home urine clear Physical Exam Physical Exam: abd soft, incisions appropriate urine clear Results & Data ([facility]) Vital Signs (Past 12 Hours) Vital Signs Temp Pulse Resp BP Pulse Ox 07/13/21 08:07 37.2 C 83 14 126/71 97 07/13/21 03:25 36.7 C 56 L 15 123/71 92 07/12/21 22:15 36.8 C 74 16 128/70 93 PG Care Time/CCT Total # of Minutes Spent Total Time Spent with Patient: Total time spent is greater than 50% in coordination of care (as documented) at patient's floor/unit and/or counseling patient: Coding Level of Care Code None Diagnoses Prostate cancer C61
[2021-07-13] MEDS ORDERED: DOCUSATE SODIUM 100 MG CAP PO SCH (09:00)
[2021-07-13] MEDS ORDERED: LEVOTHYROXINE SODIUM 150 MCG TABLET PO SCH (09:00)
[2021-07-13] MEDS: HEPARIN SOD 5,000 UNIT/0.5 ML VIAL SQ SCH (09:34)
--- NOTE | 2021-07-13 11:29 | Discharge Summary ---
Date of Service July 13, 2021 Admission HPI Per Admitting Provider 60yo M with prostate cancer admitted s/p robotic prostatectomy Admission Exam Per Admitting Provider General: Alert and oriented, no acute distress HEENT: Normocephalic, mucous membranes moist Pulmonary: Nonlabored respirations Abdomen: Nondistended Extremities: Moves all 4 spontaneously Neuro: No gross deficits Skin: Warm, dry, no rashes noted Principal Diagnosis Prostate Cancer Discharge Exam Physical Exam:E abd soft, incisions appropriate urine clear Discharge Data Allergies Allergy/AdvReac Type Severity Reaction Status Date / Time cephalexin Allergy rash Verified 07/12/21 06:43 Sulfa (Sulfonamide Allergy rash Verified 07/12/21 06:43 Antibiotics) Cipro AdvReac "YEAST Unverified 07/15/09 12:43 INFECTION ciprofloxacin AdvReac yeast Verified 07/12/21 06:43 infection Procedures Performed Operation Date: 07/12/21 08:10 Actual Procedures p Robotic Laparoscopic Assisted Prostatectomy, Bilateral Pelvic Lymph Node Dissection(Not Applicable) - Alex Perez MD Hospital Course (1) Prostate cancer: 60yo M admitted s/p robotic prostatectomy - No acute issues postoperatively. - Pt in stable condition overnight with appropriate urine output and stable labs. - Minimal pain. - Incisions appropriate. - Tolerated diet. - Ambulated without issue. - Pt subsequently discharged home with Stout catheter. - He was in stable condition at time of discharge. Total Time Total Time Spent Total Time Spent (In Minutes): 15 Discharge Plan Discharge Items Patient Disposition: Home - Self-Care Reason For Visit: Prostate Cancer Discharge Diagnosis: Prostate Cancer Activity: Per Instructions section Lifting: No more than 10 pounds Bathing Comment: OK to shower. No tub baths or soaks. Sexual Activity: Wait until after follow-up appointment Exercise/Sports: Wait until after follow-up appointment Driving/Machine Use: Do not drive while taking prescription pain medication. Non-emergency contact: Surgeon and Urologist Call non-emergency contact if: you have any medication questions, your pain is not controlled, your pain is worsening, you have a fever, your temperature is above 101, your wound has increased redness, your wound has increased drainage and your wound pain has increased Follow-up/Referrals: Alex Perez MD [Physician] - (office will call with appointment) Elijah Pham MD [Primary Care Provider] - Diet: Regular Addtl Attending Provider Instructions: Please take all medications as prescribed and keep follow-ups as scheduled. Please call our office at [phone] with any questions, concerns or need to reschedule appointments for any reason. We are happy to assist you. The urology office will contact you to schedule your follow-up appointments. We have sent an antibiotic (Doxycycline 100mg twice daily x 3 days) to your pharmacy of choice. Please begin antibiotic as prescribed the day BEFORE your scheduled catheter removal at [facility]. Please continue antibiotic twice daily until complete. While catheter is in place, please wash with warm soapy water and a fresh washcloth twice a day with mild bar soap (Dove, Dial, etc.). Your nursing visit appointment to have your catheter removed should already be made, if you have any question regarding this, please call our office. It is okay to take AZO (available over the counter) as needed for a few days to relieve burning with urination. This may cause your urine or feces to turn an orangish-color. This is expected. Please do not drive, drink alcohol or operate machinery while taking prescription pain medication. We recommend continuing a stool softener (i.e. Colace) to prevent constipation/straining for at least two weeks after your procedure. Some blood is to be expected in your urine as you heal, you may even see recurrences of blood in your urine for up to 4-6 months after your procedure. Drink plenty of fluids, avoid sexual or strenuous exercise and do not lift >25 pounds until your follow-up. Call [facility] at [phone] right away if you have any of the following: Chest pain or trouble breathing (call 911 or go to the hospital) Fever of 101F or higher, uncontrolled vomiting Heavy bleeding, clots, or bright red blood from the catheter Catheter that falls out or stops draining Foul-smelling discharge from your catheter Redness, swelling, warmth, or increased pain at your incision site Drainage, pus, or bleeding from your incision Pending Studies at Discharge: Yes Stand-Alone Forms: My [facility], Smoking Cessation Medications and DC Order Prescriptions: New oxycodone-acetaminophen [Percocet] 5-325 mg tablet 1 tab PO Q8H PRN (Reason: pain) Qty: 7 RF: 0 docusate sodium [Colace] 100 mg capsule 100 mg PO BID Qty: 30 RF: 0 doxycycline hyclate 100 mg capsule 100 mg PO BID 3 Days Qty: 6 RF: 0 Continued levothyroxine 150 mcg Tablet 150 mcg PO QAM RF: 0 Turmeric Otc 2 tab PO BID RF: 0 Discharge Orders: Discharge Order (Routine); Ordered 07/13/21 Ordered By: Bebe Hyman/Other Patient Handouts: Prostate Cancer Surg Admission Data Admit Date/Time: 07/12/21 11:47 Attending Provider: Alex Perez Admit Provider: Alex Perez Primary Care Provider: Elijah Pham Other Interventions: Discharge Summary Assessment (RN) Last Done: 07/13/21 11:26 Coding Level of Care Code D/C DAY MANAGEMENT <30 MINS Diagnoses Prostate cancer C61
== END 2021-07-13 12:00 | disposition home or self-care (01) ==
LOC: ASU 06:31 → 3N 11:47 → INTOOBSV 11:47